=== PATIENT | male | born 1975 ===

== ENCOUNTER 2017-03-24 12:44 | Day surgery (SDC) | payer SELFPAY ==
[~2017-03-24] VITALS: Ht 170.2 cm; Wt 59.9 kg
[2017-03-24] MEDS ORDERED: ALPRAZolam 0.25 MG TABLET PO SCH (21:00)
[2017-03-24] MEDS ORDERED: NEFAZODONE 100 MG TABLET PO SCH (21:00)
== END 2017-04-11 10:25 | disposition home or self-care (01) ==
LOC: EDBD → EDSEX → SDC 12:44
PROVIDERS: ATTEND Internal Medicine
DX: Z53.21 Procedure and treatment not carried out due to patient leaving prior to being seen by health care provider (principal)
CPT/HCPCS: 36415; 80162; 84460